=== PATIENT | female | born 1975 | race Caucasian/White ===

== ENCOUNTER 2020-06-20 10:16 | Outpatient (CLI) | payer BC, SELFPAY ==
--- NOTE | ~2020-06-20 | XR_ITS ---
EXAMINATION: XR chest 2V EXAM DATE: 06/20/2020 10:43 INDICATION: Cough for 2 weeks, shortness breath. History of bronchitis. TECHNIQUE: Frontal and lateral projections of the chest obtained and reviewed. There is no prior ines dy for comparison. FINDINGS: The lungs are clear. There are no pleural effusions. The cardiomediastinal silhouette is within normal limits. There is no pneumothorax suspected. The bones and soft tissues are unremarkab le. IMPRESSION: No acute cardiopulmonary findings. Reviewed, dictated and finalized at location B. ON MANAGER
== END 2020-06-20 10:17 | disposition home or self-care (01) ==
LOC: CHSIMG 10:19
PROVIDERS: PCP Nurse Practitioner Family; Visit Provider Nurse Practitioner Family
DX: R05 Cough (principal)
CPT/HCPCS: 71046

== ENCOUNTER 2020-06-27 08:02 | Outpatient (CLI) | payer BC, SELFPAY ==
--- NOTE | 2020-06-27 12:27 | P.PCNPFT_ITS ---
PFT Interpretation PFT Interpretation: DOS: 06/27/2019 REQUESTING: Lourdes Cordova NP REASON FOR TESTING: Cough PULMONARY FUNCTION TESTS Results are reproducible and reliable. Spirometry: FEV1 is 75% predicted, 2.11 L. FVC is normal 97% predicted. The FEV1/FVC ratio is 63% which is decreased. FEF 25-75 is 41% significantly dec reased. There is no significant change after bronchodilator Administration. Lung volumes: Total lung capacity 85%, normal. Residual volume 68% predicted, normal. RV/TLC is 28%, normal. Airway resistance is normal. Diffusion: DLCO is 79% normal. Flow volume loop: Normal IMPRESSION: Mild obstructive ventilatory impairment which is severe in the small airways. There is no response to bronchodilator. Normal lung volumes. Normal diffusion. Lack of response to bronchodilator should not preclude use if clinically indicated. Niox is 14 ppb, in the normal range. This indicates no increase in airway inflammation. Theresa Oleary MD
--- NOTE | 2020-06-27 12:35 | WPDPFTINT ---
PFT Interpretation PFT Interpretation: DOS: 06/27/2019 REQUESTING: Lourdes Cordova NP REASON FOR TESTING: Cough METHACHOLINE CHALLENGE This test was conducted per ATS guidelines. A PFT today 06/27/2019 showed FEV1 75% predicted, acceptable for proceeding with methacholine challenge. The patient was exposed to sequentially increasing doses of methacholine in the usual manner. Level 1 - saline Level 2 - 0.025 mg Level 3 - 0.25 mg Level 4 - 2.5 mg Level 5 - 10 mg The test was stopped after the 5th dose of methacholine, 10 mg methacholine, with a 24% decreased in FEV1. A decrease of 20% in the FEV1 is a positive result, and the testing is terminated. Flows returned to normal after bronchodilator was administered twice albuterol 2.5 mg via nebulizer. IMPRESSION: This is a positive methacholine challenge with the PD20 10 mg on the 5th level. This was the next to the highest dose that can be given. The best use for a methacholine challenge is to rule out asthma. Clinical correlation is advised. Theresa Oleary MD
== END 2020-06-27 08:03 | disposition home or self-care (01) ==
LOC: CHSCARD 08:05
PROVIDERS: PCP Nurse Practitioner Family; Visit Provider Nurse Practitioner Family
DX: R05 Cough (principal)
CPT/HCPCS: 94070; 94726; 94729; 95012; A9270; J7674

== ENCOUNTER 2020-07-18 10:58 | Outpatient (NON) | payer BC, SELFPAY ==
[2020-07-21 05:10] LABS: H pylori Ag Stool Not Detected (Not Detected)
== END 2020-07-18 10:59 ==
LOC: CHSLAB 11:04
DX: E66.01 Morbid (severe) obesity due to excess calories (principal); Z68.44 Body mass index [BMI] 60.0-69.9, adult; Z01.818 Encounter for other preprocedural examination
CPT/HCPCS: 87338

== ENCOUNTER 2021-10-12 10:01 | Outpatient (CLI) | payer BC, SELFPAY ==
[2021-10-12 10:24] LABS: Basophils Absolute Auto 0.04 K/mm3 (0.00-0.10); Basophils Percent Auto 0.5 % (0.0-1.0); Eosinophils Percent Auto 1.3 % (1.0-6.0); Hematocrit 45.2 % (35.0-49.0); Hemoglobin 14.6 g/dL (12.0-15.0); Immature Granulocyte Absolute 0.01 K/mm3 (0.00-0.00); Immature Granulocyte Percent A 0.1 % (0.0-0.0); Lymphocytes Absolute Auto 1.99 K/mm3 (1.10-4.50); Mean Corpuscular HGB Conc 32.3 g/dL (32.0-36.0); Mean Corpuscular Hemoglobin 29.9 pg (27.0-31.0); Mean Corpuscular Volume 92.4 fL (78.0-102.0); Mean Platelet Volume 9.1 fl (9.2-11.8); Monocytes Absolute Auto 0.54 K/mm3 (0.10-0.90); Monocytes Percent Auto 7.1 % (2.0-11.0); Platelet Count Result 321 K/mm3 (150-420); Red Blood Count 4.89 M/mm3 (4.20-5.40); Red Cell Distribution Width 13.2 % (11.6-14.4); White Blood Count 7.7 K/mm3 (4.8-10.8)
[2021-10-12 10:41] LABS: Hemoglobin A1C 5.2 % (<5.7)
[2021-10-12 11:54] LABS: Alanine Aminotransferase 29 U/L (14-59); Albumin Level 3.4 g/dL (3.4-5.0); Alkaline Phosphatase 97 U/L (46-116); Anion Gap 6 mmol/L (8-16); Aspartate Amino Transferase 11 U/L (15-37); Bilirubin,Total 0.4 mg/dL (0.00-1.00); Blood Urea Nitrogen 11 mg/dL (7-18); Calcium 8.8 mg/dL (8.5-10.1); Carbon Dioxide 29 mmol/L (21-32); Chloride 103 mmol/L (98-108); Cholesterol 221 mg/dL (0-200); Estimated Glomerular Filt Rate > 60; Glucose 88 mg/dL (70-99); HDL Direct 49 mg/dL (40-60); Iron 38 ug/dL (50-170); LDL Cholesterol Calculated 154 mg/dL (<130); Osmolality Calculated 284 mOsm/kg (285-295); Percent Iron Saturation 10 % (12-57); Potassium 4.1 mmol/L (3.5-5.1); Sodium 138 mmol/L (136-145); Thyroid Stimulating Hormone 2.55 uIU/mL (0.36-3.74); Total Protein 6.7 g/dL (6.4-8.2); Triglycerides 92 mg/dL (0-150)
== END 2021-10-12 10:02 | disposition home or self-care (01) ==
LOC: CHSLAB 10:03
PROVIDERS: PCP Nurse Practitioner Family; Visit Provider Nurse Practitioner Family
DX: E61.1 Iron deficiency (principal); I10 Essential (primary) hypertension; E88.81 Metabolic syndrome and other insulin resistance; E66.01 Morbid (severe) obesity due to excess calories
CPT/HCPCS: 36415; 80053; 80061; 83036; 83540; 83550; 84443; 85025

== ENCOUNTER 2023-02-21 11:24 | Outpatient (CLI) | payer BC, SELFPAY ==
[2023-02-21 11:57] LABS: Basophils Absolute Auto 0.03 K/mm3 (0.00-0.10); Basophils Percent Auto 0.4 % (0.0-1.0); Eosinophils Absolute Auto 0.03 K/mm3 (0.02-0.50); Eosinophils Percent Auto 0.4 % (1.0-6.0); Hematocrit 47.5 % (35.0-49.0); Hemoglobin 15.6 g/dL (12.0-15.0); Immature Granulocyte Absolute 0.02 K/mm3 (0.00-0.00); Immature Granulocyte Percent A 0.3 % (0.0-0.0); Lymphocytes Absolute Auto 1.83 K/mm3 (1.10-4.50); Lymphocytes Percent Auto 25.1 % (18.0-42.0); Mean Corpuscular HGB Conc 32.8 g/dL (32.0-36.0); Mean Corpuscular Volume 97.3 fL (78.0-102.0); Mean Platelet Volume 10.4 fl (9.2-11.8); Monocytes Percent Auto 6.9 % (2.0-11.0); Neutrophils Absolute Auto 4.9 K/mm3 (1.7-7.2); Neutrophils Percent Auto 66.9 % (50.0-70.0); Platelet Count Result 257 K/mm3 (150-420); Red Blood Count 4.88 M/mm3 (4.20-5.40); Red Cell Distribution Width 12.5 % (11.6-14.4); White Blood Count 7.3 K/mm3 (4.8-10.8)
[2023-02-21 12:19] LABS: Hemoglobin A1C 5.1 % (<5.7)
[2023-02-21 12:41] LABS: Alanine Aminotransferase 18 U/L (14-59); Albumin Level 3.5 g/dL (3.4-5.0); Alkaline Phosphatase 88 U/L (46-116); Anion Gap 8 mmol/L (8-16); Aspartate Amino Transferase 16 U/L (15-37); Bilirubin,Total 0.8 mg/dL (0.00-1.00); Blood Urea Nitrogen 8 mg/dL (7-18); Carbon Dioxide 27 mmol/L (21-32); Chloride 106 mmol/L (98-108); Cholesterol 214 mg/dL (0-200); Estimated Glomerular Filt Rate > 60; Glucose 77 mg/dL (70-99); HDL Direct 72 mg/dL (40-60); LDL Cholesterol Calculated 123 mg/dL (<130); Magnesium 1.9 mg/dL (1.8-2.4); Osmolality Calculated 289 mOsm/kg (285-295); Potassium 4.2 mmol/L (3.5-5.1); Sodium 141 mmol/L (136-145); Total Protein 6.6 g/dL (6.4-8.2); Triglycerides 95 mg/dL (0-150); Vitamin B12 531 pg/mL (193-986)
[2023-02-21 12:42] LABS: Folic Acid > 20.0 ng/mL (8.6->20)
== END 2023-02-21 11:25 | disposition home or self-care (01) ==
LOC: CHSLAB 11:29
PROVIDERS: PCP Nurse Practitioner Family
DX: K91.2 Postsurgical malabsorption, not elsewhere classified (principal); Z13.21 Encounter for screening for nutritional disorder; Z98.84 Bariatric surgery status
CPT/HCPCS: 36415; 80053; 80061; 82607; 82746; 83036; 83735; 85025

== ENCOUNTER 2023-05-29 15:00 | Outpatient (CLI) | payer BC, SELFPAY ==
[2023-05-29 15:57] LABS: SARS-CoV-2 RNA PCR Negative (Negative)
[2023-05-29 16:03] LABS: Influenza A QL RT-PCR Negative (Negative); Influenza B QL RT-PCR Negative (Negative); RSV RNA, RT-PCR Negative (Negative)
== END 2023-05-29 15:01 | disposition home or self-care (01) ==
LOC: CHSLAB 15:02
PROVIDERS: PCP Nurse Practitioner Family; Visit Provider Nurse Practitioner Family
DX: J39.9 Disease of upper respiratory tract, unspecified (principal)
CPT/HCPCS: 87637

== ENCOUNTER 2024-08-01 20:07 | Emergency (ER) | payer BC, SELFPAY ==
--- NOTE | ~2024-08-01 | XR_ITS ---
HISTORY: LEFT KNEE PAIN AFTER FALL THIS EVENING. COMPARISON: None TECHNIQUE: 4 views of the left knee were performed FINDINGS: No acute or subacute fracture. Medial and lateral tibiofemoral joint space narrowing is identified. Moderate suprapatellar joint effusion is identified. The infrapatellar joint space is clear. IMPRESSION: Significant degenerative disease without acute fracture. Moderate suprapatellar joint effusion. Reviewed, dictated and finalized at location A. CE CORRESPONDENT
[2024-08-01 20:07] VITALS: BP 152/91; PULSE 76; RESP 18; TEMP 36.5; O2SAT 100
--- OUTSIDE RECORDS SUMMARY | 2024-08-01 20:09 | XMS_ITS | Encounter Summary ---
Author Organization [facility] Address [address] [place] [address] Care Team Providers Care Product Design Engineer Name Role Phone Unavailable Primary Care Provider Unavailabl e Reason for Visit * Reason Onset Date Comments Medical Management 03/25/2022 Spoke w/ LIBRARIAN HELPER Kylah rodarte Encounter Details Date Type Department Care Team (Late st Contact Info) Description 03/25/2022 Telephone [facility] Admitting [address] [place] [address] [place] [address] [place] [address] [place] [address] Medical Management (Spoke w/ LIBRARIAN HELPER Hossein) Social History Tobacco Use Types Packs/Day Years Used Date Smoking Tobacco: Former Cigarettes Q uit: 1996 Smokeless Tobacco: Never Alcohol Use Standard Drinks/Week Comments Yes 0 (1 standard drink = 0.6 oz pur e alcohol) socially Comments No Sex and Gender Information Value Date Recorded Sex Assigned at Not on file Legal Sex Female 8:59 AM CDT Gender Identity Not on file Sexual Orientation Not on file COVID-19 Exposure Response Date Recorded In the last 10 days, have yo u been in contact with someone who was confirmed or suspected to have Coronavirus/COVID-19? No / Unsure 03/25/2022 7:04 AM CDT documented as of this encounter Plan of Treatment Not on file documented as of this encounter Visit Diagnoses Not on filedocumented in this encounter
--- OUTSIDE RECORDS SUMMARY | 2024-08-01 20:09 | XMS_ITS | Clinical Summary ---
Author Organization [facility] Address [address] [place] [address] Phone Care Team Providers Care Commissioned Sales Associate Name Role Phone Unavailable Primary Care Provider Unavailabl e Allergies Active Allergy Reactions Criticality Noted Date Comments Lisinopril Cough Low 12/20/2021 Medications buPROPion HCL (WELLBUTRIN SR) 150 mg Sustained Release 12 hour tablet Take 150 mg by mouth daily. Active pantoprazole (Protonix) 40 mg Tablet, Delayed Release (E.C.) Take 1 Tablet (40 mg) by mouth daily. 60 Tablet 2 Active lovastatin (MEVACOR) 20 mg tablet Take 20 mg by mouth daily. 2 Active FLUoxetine (PROzac) 20 mg capsule Take 20 mg by mouth daily. 2 Active fluticasone propion-salmete roL (ADVAIR DISKUS,WIXELA INHUB) 100-50 mcg/dose disk inhaler Take 1 Puff by inhalation daily. Active albuterol sulfate 90 mcg/Actuation inhaler Take 1 Puff by inhalation every 6 hours as needed. 1 Active HYDROcodone-nohemy taminophen (HYCET) 7.5-325 mg/15 mL SolutionIndicat ions:Morbid obesity with BMI of 60.0-69.9, adult (CMS/HCC) Take 15 mL by mouth every 6 hours as needed for Pain. Max Daily Amount: 60 mL 280 mL 03/26/2022 2:29 PM CDT 2 Active famotidine (PEPCID) 20 mg tablet Take 1 Tablet (20 mg) by mouth 2 times daily. 60 Tablet 2 03/26/2022 2:29 PM CDT 2 Active ondansetron (Zofran) 4 mg Tablet Take 1 Tablet (4 mg) by mouth every 8 hours as needed for Nausea or Vomiting. 50 Tablet 03/26/2022 2:29 PM CDT 2 Active Active Problems Problem Noted Date Diagnosed Date Hypophosphatemia 03/27/2022 Morbid obesity with BMI of 50.0-59.9, adult 03/09 S/P laparoscopic sleeve gastrectomy 03/26/2022 Hypokalemia 03/26/2022 Hypomagnesemia 03/26/2022 Immunizations Immunization Administration Dates Next Due Influenza Seasonal Unspecified Formulation IM Family History Medical History Relation Name Comments Diabetes Father Hypertension Father Diabetes Mother Relation Name Status Comments Father Mother Social History Tobacco Use Types Packs/Day Years Used Date Smoking Tobacco: Former Cigarettes Q uit: 1996 Smokeless Tobacco: Never Tobacco Cessation:Counseling Given: Not Answered Alcohol Use Standard Drinks/Week Comments Yes 0 (1 standard drink = 0.6 oz pur e alcohol) socially Comments No Sex and Gender Information Value Date Recorded Sex Assigned at Not on file Legal Sex Female 8:59 AM CDT Gender Identity Not on file Sexual Orientation Not on file Last Filed Vital Signs Vital Sign Reading Time Taken Comments Blood Pressure 140/76 03/27/2022 7:56 AM CDT Pulse 76 03/27/2022 7:56 AM CDT Temperature 36.7 C (98 F) 03/27/2022 7:56 AM CDT Respiratory Rate 16 03/27/2022 7:56 AM CDT Oxygen Saturation 97% 03/27/2022 7:56 AM CDT Inhaled Oxygen Concentration - - Weight 154.2 kg (340 lb) 03/25/2022 7:06 AM CDT Height 165.1 cm (5' 5 ) 03/25/2022 7:06 AM CDT Body Mass Index 56.58 03/25/2022 7:06 AM CDT Plan of Treatment Health Maintenance Due Date Last Done Comments Pre-Diabetes and Diabetes Screening 1975 PNEUMOCOCCAL VACCINE 0-64 YEARS (1 of 2 - PCV) 982 DTAP/TDAP/TD VACCINES (1 - Tdap) 08/07/1994 HEPATITIS B VACCINES (1 of 3 - 19+ 3-dose series) 06/1994 CERVICAL CANCER SCREENING 08/07/2005 BREAST CANCER SCREENING 2015 COLORECTAL SCREENING 08/07/2020 Colorectal Cancer Screening 08/07/2020 FIT-DNA Q 3 years 08/07/2020 FIT/FOBT Q 1 year 08/07/2020 Flex Sig/CT Colonography Q 5 years 08/07/2020 INFLUENZA VACCINE (#1) 2024 03/09/2022 Medical Devices Implanted Type Area Engineer [employer] Device Identifier Shelf Expiration Date Model / Serial / Lot Seamguard Endogia 60 Prpl [id number] - [id number] Implanted:Qty : 2 on 03/25/2022 by Monroe Jaramillo MD at [facility] N/A: Abdomen [employer] 11/26/2024 [id number] / / [id number] Seamguard Endogia 60 Blk [id number] - [id number] Implanted:Qty : 2 on 03/25/2022 by Monroe Jaramillo MD at [facility] N/A: Abdomen [employer] 10/06/2024 [id number] / / [id number] [employer] Worker Endoclip Iii 5mm W/Cliplogic [id number] - [id number] Implanted:Qty : 1 on 03/25/2022 by Monroe Jaramillo MD at [facility] N/A: Abdomen [employer]EN 09/07/2023 [id number] / / [id number] Lens Implant Insurance BCBS BLUE ACCESS/TRUE BLUE PPO RX PRIME THERAPEUTICS Commercial RX MC PLANS (INTERNAL) [facility] Internal Plans Advance Directives For more information, please contact: [phone] * Full Code (Latest Code Status on File) Date Activated Date Inactivated Comments 03/25/2022 3:13 PM 03/27/2022 2:32 PM * Full Code Date Activated Date Inactivated Comments 03/25/2022 6:34 AM 03/25/2022 3:13 PM * Full Code Date Activated Date Inactivated Comments 03/22/2022 8:09 AM 03/22/2022 12:49 PM
--- OUTSIDE RECORDS SUMMARY | 2024-08-01 20:09 | XMS_ITS | Clinical Summary ---
Author Organization [facility] Address [address] [facility] [place] [address] Care Team Providers Care Franchise Sales Representative Name Role Phone YulissaRosiomiriam Levy DO Primary Care Provider Allergies Active Allergy Reactions Criticality Noted Date Comments Lisinopril Cough Low 07/07/2020 Medications ProAir HFA 90 mcg/actuation inhalerIndicati ons:Acute Asthma Attack Inhale 1 puff every 6 (six) hours as needed 1 Active FLUoxetine (PROzac) 20 mg capsuleIndicati ons:depression Take 1 capsule (20 mg total) by mouth every morning 0 Active Advair Diskus 250-50 mcg/dose diskus inhalerIndicati ons:Maintenance Therapy for Asthma Inhale 1 puff 2 (two) times a day 1 Active guaifenesin (MUCINEX ORAL) Take 1 tablet by mouth as needed Active acetaminophen/c affeine (EXCEDRIN TENSION HEADACHE ORAL) Take 1 tablet by mouth as needed (RAMOS) Active ferrous fumarate 325 mg (106 mg iron) tablet Take 1 tablet (325 mg total) by mouth daily with breakfast Active phentermine 15 mg capsule Take 1 capsule (15 mg total) by mouth every morning 1 Active Active Problems Problem Noted Date Diagnosed Date Class 3 severe obesity due t o excess calories with serious comorbidity and body mass index (BMI) of 50.0 to 59.9 in adult 07/10/2020 Overview (07/10/2020): Added automatically from request for surgery [id number] Asthma 07/10/2020 HTN (hypertension) 07/10/2020 Surgical History Surgery Date Site/Laterality Comments CATARACT EXTRACTION EXTRACAP SULAR W/ INTRAOCULAR LENS IMPLANTATION 06/09/2017 - 06/08/2018 Bilateral Medical History Medical History Date Comments Asthma HTN (hypertension) GERD (gastroesophageal reflux disease) Depression Family History Medical History Relation Name Comments Anesthesia problems Neg Hx Social History Tobacco Use Types Packs/Day Years Used Date Smoking Tobacco: Former Cigarettes Q uit: 1994 Smokeless Tobacco: Never Comments:occasional 3-4 ciga rettes Alcohol Use Standard Drinks/Week Comments Yes 0 (1 standard drink = 0.6 oz pur e alcohol) 2 drinks per month Personal Safety Answer Date Recorded Getting School Help Needed Not on file 08/09 Comments Unknown Sex and Gender Information Value Date Recorded Sex Assigned at Not on file Legal Sex Female 11:57 AM WORKERS' COMPENSATION MEDIATOR Gender Identity Female 07/01/2020 10:47 AM WORKERS' COMPENSATION MEDIATOR Sexual Orientation Straight 07/01/2020 10 :47 AM WORKERS' COMPENSATION MEDIATOR Obstetrics History Last Filed Vital Signs Vital Sign Reading Time Taken Comments Blood Pressure 116/78 11/07/2023 9:08 AM CDT Pulse 56 11/07/2023 9:08 AM CDT Temperature 36.2 C (97.1 F) 08/01/2020 10:35 AM WORKERS' COMPENSATION MEDIATOR Respiratory Rate 29 08/01/2020 2:20 PM WORKERS' COMPENSATION MEDIATOR Oxygen Saturation 97% 08/01/2020 2:20 PM WORKERS' COMPENSATION MEDIATOR Inhaled Oxygen Concentration - - Weight 104.8 kg (231 lb) 11/07/2023 9:08 AM CDT Height 165.1 cm (5' 5 ) 04/02/2021 10:22 AM CDT Body Mass Index 38.44 04/02/2021 10:22 AM CDT Plan of Treatment Health Maintenance Due Date Last Done Comments Breast Cancer Screening-Mammogram 1975 Cervical Cancer Screening 1975 Colon Cancer Screening-Colonoscopy 1975 Depression Screening 1975 Hepatitis C Screening 1975 DTaP/Tdap/Td Vaccine (1 - Tdap) 08/07/1986 Hepatitis B Screening 08/07/1993 Regular Well Visit/Exam 18-64 08/07/1993 Pneumococcal vaccine <65 (1 of 2 - PCV) 08/07/1994 Covid-19 Vaccine Completed 03/07/2024, , 03/09/2022, Additional history exists Influenza Vaccine Completed 03/07/2024, , 03/09/2022, Additional history exists Insurance [employer] [place] [employer] [place] CHO[place]F [place] Advance Directives For more information, please contact: [phone] * Full Code (Latest Code Status on File) Date Activated Date Inactivated Comments 08/01/2020 10:02 AM 08/01/2020 6:40 PM Care Teams Franchise Sales Representative Relationship Specialty Start Date End Date Garth Duenas DO [address] [place] [address] PCP - General Family Medicine 06/21/20
--- OUTSIDE RECORDS SUMMARY | 2024-08-01 20:09 | XMS_ITS | Referral Summary ---
Author Organization [facility] Address [address] [facility] [address] [place] [address] Care Team Providers Care Borematic Operator Name Role Phone YulissaRosiomiriam Levy DO Primary [...] (07/10/2020): Added automatically from request for surgery [id number] Asthma 07/10/2020 HTN (hypertension) 07/10/2020 Social History Tobacco Use Types Packs/Day Years [...] on file Legal Sex Female 11:57 AM 911 OPERATOR Gender Identity Female 07/01/2020 10:47 AM 911 OPERATOR Sexual Orientation Straight 07/01/2020 10 :47 AM 911 OPERATOR Last Filed Vital Signs Vital Sign Reading Time Taken Comments Blood Pressure 116/78 11/07/2023 9:08 AM CDT Pulse 56 11/07/2023 9:08 AM CDT Temperature 36.2 C (97.1 F) 08/01/2020 10:35 AM 911 OPERATOR Respiratory Rate 29 08/01/2020 2:20 PM 911 OPERATOR Oxygen Saturation 97% 08/01/2020 2:20 PM 911 OPERATOR Inhaled Oxygen Concentration - - Weight 104.8 kg (231 lb) 11/07/2023 9:08 AM CDT Height 165.1 cm (5' 5 ) 04/02/2021 10:22 AM CDT Body Mass Index 38.44 04/02/2021 10:22 AM CDT Plan of Treatment Not on file Insurance [employer] OOS Member Subscriber Plan / Payer (Ef fective 2018-Present) Name:Magda Astorga Relation to Subscriber:Self Name:Magda Astorga Payer ID:[id number] (NAIC) Type:BC ALLIANCE Address: [address] CHOICE PRF PPO [place] Member Subscriber Plan / Payer (Ef fective 2018-Present) Name:Magda Astorga Relation to Subscriber:Self Name:Magda Astorga Payer ID:[id number] (NAIC) Type:HEALTHCARE/EXCHANGE Address: [address] [place] [phone] Advance Directives For more information, please contact: [phone] * Full Code (Latest Code Status on File) Date Activated Date Inactivated Comments 08/01/2020 10:02 AM 08/01/2020 6:40 PM Care Teams Borematic Operator Relationship Specialty Start Date End Date Garth Duenas DO [address] [place] [address] PCP - General Family Medicine 06/21/20
--- OUTSIDE RECORDS SUMMARY | 2024-08-01 20:09 | XMS_ITS | Clinical Summary ---
Author Organization [facility] Address [facility] [place] [address] Care Team Providers Care Beater Engineer Helper Name Role Phone AntwonGarth lozano Primary Care Provider [phone] Allergies Active Allergy Reactions Criticality Noted Date Comments Lisinopril Cough 05/12/2024 Medications albuterol sulfate HFA 108 (90 Base) MCG/ACT inhaler 05/20/2023 Act sugey montelukast (SINGULAIR) 10 MG tablet Take 1 tablet (10 mg total) by mouth. 07/08/2023 Active FLUoxetine (PROZAC) 20 MG capsule Take 1 capsule (20 mg total) by mouth daily. 04/14/2024 Active Active Problems No known active problems Encounters Date Type Department Care Team Description 05/12/2024 8:08 PM TECHNICAL ARTIST - 05/12/2024 11:59 PM [facility] Hospital Encounter [facility] [address] [place] [address] Sisi Loera FNP Discharge Disposition: Home or Self Care (Routine Discharge) 05/12/2024 1:40 PM TECHNICAL ARTIST Office Visit [facility] [address] [place] [address] Sisi Loera FNP Sore Throat 05/12/2024 Travel from Last 3 Months Immunizations Name Administration Dates Next Due Afluria 6-35 months (pre-herber led syringe IIV4) 03/09/2022 Influenza (Generic) 03/17/2021 Influenza Adult (Generic) 03/06/2023,03/04/2020, 03/12/2016 Social History Tobacco Use Types Packs/Day Years Used Date Smoking Tobacco: Former Cigarettes Q uit: 06/09/1993 Smokeless Tobacco: Never PHQ-2 Answer Date Recorded Patient Health Questionnaire-2 Score 0 08/13/2023 Comments Unknown Sex and Gender Information Value Date Recorded Sex Assigned at Not on file Legal Sex Female 3:03 PM TECHNICAL ARTIST Gender Identity Not on file Sexual Orientation Not on file Last Filed Vital Signs Vital Sign Reading Time Taken Comments Blood Pressure 122/88 05/12/2024 1:48 PM TECHNICAL ARTIST Pulse 66 05/12/2024 1:48 PM TECHNICAL ARTIST Temperature 37 C (98.6 F) 05/12/2024 1:48 PM TECHNICAL ARTIST Respiratory Rate - - Oxygen Saturation 98% 05/12/2024 1:48 PM TECHNICAL ARTIST Inhaled Oxygen Concentration - - Weight 113.4 kg (250 lb) 05/12/2024 1:48 PM TECHNICAL ARTIST Height 165.1 cm (5' 5 ) 05/12/2024 1:48 PM TECHNICAL ARTIST Body Mass Index 41.6 05/12/2024 1:48 PM TECHNICAL ARTIST Plan of Treatment Health Maintenance Due Date Last Done Comments Cervical Cancer Screening Pap Smear (Age 30 to 64) Every 3 Years 1975 Colorectal Cancer Screening Colonoscopy (10 Years) 1975 Annual Physical 08/07/1978 Hepatitis C 08/07/1993 DTaP, Tdap and Td Vaccines (1 - Tdap) 08/07/1994 Hepatitis B Vaccines (1 of 3 - 19+ 3-dose series) 08/07/1994 Cervical Cancer Screening Pap with HPV Testing (Age 30 to 64) Every 5 Years 08/07/2005 Cervical Cancer Screening with HPV 08/07/2005 Mammogram Screening 2015 COVID-19 Vaccine ( season) 2024 03/27/2023, 03/09/2022, 03/17/2021, Additional history exists Influenza Adult (#1) 2024 03/06/2023, 03/17/2021, 03/04/2020, Additional history exists PHQ-2 (Physician [place]) 06/09/2024 08/13/2023 Meningococcal B Vaccine Aged Out No l onger eligible based on patient's age to complete this topic Meningococcal Vaccine Aged Out No leonel annette eligible based on patient's age to complete this topic Pneumococcal Vaccine: Pediatrics (0 to 5 Years) and At-Risk Patients (6 to 64 Years) Aged Out No longer eligible based on patient's age to complete this topic RSV Immunizations Under 20 Months Aged Out No longer eligible based on patient's age to complete this topic Procedures Procedure Name Priority Date/Time Associated Diagnosis Comments CULTURE STREP A Routine 05/12/2024 1:40 PM TECHNICAL ARTIST Acute pharyngitis, unspecified etiology STREP A RAPID Routine 05/12/2024 Sore throat from Last 3 Months Results * CULTURE STREP A (05/12/2024 1:40 PM TECHNICAL ARTIST) SPEC DESCRIPTION THROAT 05/12/2024 8:09 PM TECHNICAL ARTIST [facility] SPECIAL REQUESTS NO SPECIAL REQUEST 05/12/2024 8:09 PM TECHNICAL ARTIST [facility] CULTURE RESULT NO STREPTOCOCCUS PYOGENES (GROUP A) ISOLATED 05/15/2024 1:30 PM TECHNICAL ARTIST [facility] THROAT SWAB / Unknown 05/12/2024 1:40 PM TECHNICAL ARTIST 05/12/2024 8:23 PM TECHNICAL ARTIST Sisi ZACARIASP MICROBIOLOGY - GENERAL ORDERABLES Final Result Performing Organization Address City/[facility]/ZIP Co de Phone Number [facility] [address] [place] [address], [phone] * STREP A RAPID (05/12/2024) RAPID STREP TEST NEGATIVE NEGATIVE -[address] Internal Control: VALID VALID -[address] STRUCTURE OF ANTERIOR PORTION OF NECK / Unknown 05/12/2024 Sisi ZACARIASP MICROBIOLOGY - GENERAL ORDERABLES Final Result [id number] [place] [address] [place] [address], from Last 3 Months Insurance [facility] Care Teams Beater Engineer Helper Relationship Specialty Start Date End Date Garth Duenas DO [address] [place] [address] PCP - General FAMILY PRACTICE 08/13/23
--- NOTE | 2024-08-01 20:16 | ED.LOWEXIN ---
HPI - Extremity Injury (Lower) General Chief Complaint: Extremity Injury, Lower Stated Complaint: FALL Time Seen by Provider: 08/01/24 20:16 Source: patient Mode of arrival: ambulatory Limitations: no limitations History of Present Illness HPI Narrative: Patient is a 48-year-old female who was working this evening and pushing a shopping cart which fell off the curb and from ground level she fell onto the concrete. Patient has left knee pain after the fall. No other injuries. Head and neck are negative for complaints. MD complaint: knee injury ( Left) Onset (ago): hour(s) ( 3) Injury: Left: knee Type of Injury: blunt Place: street/outdoors Severity: moderate Severity scale (1-10): 5 Relieving factors: immobilization Exacerbating factors: weight bearing, movement and palpation Context: fall, direct blow and walking Associated symptoms: swelling and other ( ecchymosis) Other symptoms: none Treatments prior to arrival: other ( none) Related Data Home Medications ?Medication ?Instructions ?Recorded ?Confirmed ?Last Taken ?Type benzonatate 200 mg capsule See Rx Instructions .Route 05/14/24 05/21/24 Unknown History .COMPLEX PRN Allergies Allergy/AdvReac Type Severity Reaction Status Date / Time lisinopril Allergy Mild cough Verified 08/01/24 20:53 Review of Systems Review of Systems: All systems reviewed & are unremarkable except as noted in HPI and below Constitutional: Constitutional: Reports no additional constitutional complaints Eyes: Eyes: Reports no additional eye complaints ENT: Reports system reviewed and no additional complaints, except as documented Cardiovascular: Cardiovascular: Reports no additional cardiovascular complaints Respiratory: Respiratory: Reports no additional respiratory complaints Gastrointestinal: Gastrointestinal: Reports no additional gastrointestinal complaints Genitourinary: Genitourinary: Reports no additional female genitourinary complaints Musculoskeletal: Musculoskeletal: Reports no additional musculoskeletal complaints Integumentary/Breasts: Skin/Breast: Reports system reviewed and no additional complaints, except as docu Neurologic: Reports system reviewed and no additional complaints, except as documented Psychiatric: Psychiatric: Reports no additional psychiatric complaints Endocrine: Endocrine: Reports no additional endocrine complaints Hematologic/Lymphatic: Hematologic/Lymphatic: Reports no additional hematologic/lymphatic complaints Allergic/Immunologic: Allergic/Immunologic: Reports no additional allergic/immunologic complaints PMFSH Past Medical History Medical History Hypertension Obesity, morbid, BMI 50 or higher Persistent cough for 3 weeks or longer Encounter for screening mammogram for malignant neoplasm of breast Bronchial spasms Bronchitis Surgical History Surgical History S/P laparoscopic sleeve gastrectomy (~08/2020) History of gastric surgery (~07/2020) History of eye surgery Family History Family History Father Heart disease Other emphysema Social History Social History Years smoked: 3 Smoking status: Former smoker Alcohol intake: current Alcohol use details: social Substance use: never Substance use type: does not use Living arrangements: with family Additional living arrangements comments: Gender identity (if verbalized by the patient): Female Exam Const: General: healthy appearing Nutritional Appearance: well nourished Orientation/consciousness: patient oriented x3 Limitations: no limitations HENMT: Head: normal to inspection Ears: external ears normal Face/Nose/Sinus: Normal external nose present Eyes: Conjunctivae: conjunctivae normal Pupils: Equal, round and reactive pupils present EOM: EOMs intact bilaterally Neck: Neck: normal visual inspection Chest: Chest palpation & inspection: normal inspection of the chest Resp: Effort & Inspection: normal respiratory effort and not labored Auscultation: clear to auscultation bilaterally and no crackles Cardio: Rate: regular rate Rhythm: regular rhythm Heart sounds: no murmurs GI: Inspection: non-distended GI Palp: Yes Soft to palpation and No Tenderness to palpation present (GI) Auscultation: normal bowel sounds : General: Yes bladder normal to palpation Back/Spine/Pelvis: Back: no CVA tenderness Skin: General skin exam: normal color Rashes: no rashes Wounds: no wounds Other: ecchymosis of the right knee laterally Neuro: General: patient oriented x3 Cranial nerves: Yes Nystagmus not present Speech: normal speech Gait exam (Neuro): Normal gait present Extrem: General: abnormal to inspection Other: right knee is tender and swollen with ecchymosis; range of motion causes pain Psych: Mental Status: mental status grossly normal Affect: normal affect Attitude: cooperative Course Vital Signs Vital signs: Vital Signs Temperature 36.5 C 08/01/24 20:07 Pulse Rate 76 08/01/24 20:07 Respiratory Rate 18 08/01/24 20:07 Blood Pressure 152/91 H 08/01/24 20:07 Pulse Oximetry 100 08/01/24 20:07 Oxygen Delivery Room Air 08/01/24 20:07 Temperature 36.5 C 08/01/24 20:07 Pulse Rate 76 08/01/24 20:07 Respiratory Rate 18 08/01/24 20:07 Blood Pressure 152/91 H 08/01/24 20:07 Pulse Oximetry 100 08/01/24 20:07 Oxygen Delivery Room Air 08/01/24 20:07 MDM - Extremity Injury (Lower) MDM Narrative Medical decision making narrative: patient is a 48-year-old female with left knee pain and swelling after an injury. We will do an x-ray and pain control. Imaging Data Attestation: I personally reviewed and interpreted this imaging study as follows: Radiologist's impression: left knee x-ray shows IMPRESSION: Significant degenerative disease without acute fracture. Moderate suprapatellar joint effusion. Discharge Plan Discharge Clinical Impression: Derangement of knee, left, Effusion of knee joint, left Patient Disposition: Home, Self-Care Condition: Stable Instructions: Knee Pain (ED) Additional Instructions: please follow-up with the primary doctor in the next week. I suggest an MRI to be done through the primary doctor in the next week. Further you may want to see an development disability specialist. Wear the Arron bandage all the time. You may want to get crutches at the pharmacy. Patient Language: Congolese Prescriptions: New hydrocodone-acetaminophen 5-325 mg tablet 1 tablet PO Q8H PRN (Reason: pain) Qty: 20 0RF Rx Instructions: 1-2 tabs per dose methylprednisolone [Medrol (Jeison)] 4 mg tablets,dose pack See Rx Instructions .ROUTE .COMPLEX Qty: 21 0RF Rx Instructions: orally per package directions No Action albuterol sulfate [Ventolin HFA] 90 mcg/actuation HFA aerosol inhaler 1 inh inhalation Q4H PRN (Reason: shortness of breath or wheezing) Qty: 8.5 1RF benzonatate 200 mg capsule See Rx Instructions .ROUTE .COMPLEX PRN Dose Instruction: TAKE ONE CAPSULE BY MOUTH THREE TIMES A DAY NEEDED FOR COUGH Rx Instructions: TAKE ONE CAPSULE BY MOUTH THREE TIMES A DAY NEEDED FOR COUGH PRN; fluticasone propionate [Allergy Relief (fluticasone)] 50 mcg/actuation spray,suspension 1 spray intranasal DAILY PRN (Reason: nasal congestion) Qty: 15.8 1RF Rx Instructions: administer into each nostril fluticasone propion-salmeterol [Advair Diskus] 100-50 mcg/dose blister with device 1 inh inhalation Q12H Qty: 60 5RF montelukast 10 mg tablet See Rx Instructions .ROUTE .COMPLEX Qty: 30 3RF Dose Instruction: TAKE ONE TABLET ORALLY DAILY Rx Instructions: TAKE ONE TABLET ORALLY DAILY fluoxetine 20 mg capsule See Rx Instructions .ROUTE .COMPLEX Qty: 30 3RF Dose Instruction: TAKE ONE CAPSULE BY MOUTH DAILY Rx Instructions: TAKE ONE CAPSULE BY MOUTH DAILY Follow-up/Referrals: Garth Duenas DO [Primary Care Provider] - Time of Disposition: 21:46
--- OUTSIDE RECORDS SUMMARY | 2024-08-01 20:34 | XMS_ITS | Clinical Summary ---
Author Organization [facility] Address [facility] [place] [address] Care Team Providers Care Mold Stamper And Repairer Name Role Phone AntwonGarth lozano Primary Care Provider [phone] Allergies Active Allergy Reactions Criticality Noted Date [...] Department Care Team Description 05/12/2024 8:08 PM HIGH MAN - 05/12/2024 11:59 PM [facility] Hospital Encounter [facility] [address] [place] [address] Sisi Loera FNP Discharge Disposition: Home or Self Care (Routine Discharge) 05/12/2024 1:40 PM HIGH MAN Office Visit [facility] [address] [place] [address] Sisi Loera FNP Sore Throat [...] on file Legal Sex Female 3:03 PM HIGH MAN Gender Identity Not on file Sexual Orientation Not on file Last Filed Vital Signs Vital Sign Reading Time Taken Comments Blood Pressure 122/88 05/12/2024 1:48 PM HIGH MAN Pulse 66 05/12/2024 1:48 PM HIGH MAN Temperature 37 C (98.6 F) 05/12/2024 1:48 PM HIGH MAN Respiratory Rate - - Oxygen Saturation 98% 05/12/2024 1:48 PM HIGH MAN Inhaled Oxygen Concentration - - Weight 113.4 kg (250 lb) 05/12/2024 1:48 PM HIGH MAN Height 165.1 cm (5' 5 ) 05/12/2024 1:48 PM HIGH MAN Body Mass Index 41.6 05/12/2024 1:48 PM HIGH MAN Plan of Treatment Health Maintenance Due Date [...] 03/17/2021, 03/04/2020, Additional history exists PHQ-2 (Physician [place]) 06/09/2024 08/13/2023 Meningococcal B Vaccine Aged Out [...] CULTURE STREP A Routine 05/12/2024 1:40 PM HIGH MAN Acute pharyngitis, unspecified etiology STREP A RAPID Routine 05/12/2024 Sore throat from Last 3 Months Results * CULTURE STREP A (05/12/2024 1:40 PM HIGH MAN) SPEC DESCRIPTION THROAT 05/12/2024 8:09 PM HIGH MAN [facility] SPECIAL REQUESTS NO SPECIAL REQUEST 05/12/2024 8:09 PM HIGH MAN [facility] CULTURE RESULT NO STREPTOCOCCUS PYOGENES (GROUP A) ISOLATED 05/15/2024 1:30 PM HIGH MAN [facility] THROAT SWAB / Unknown 05/12/2024 1:40 PM HIGH MAN 05/12/2024 8:23 PM HIGH MAN Sisi ZACARIASP MICROBIOLOGY - GENERAL ORDERABLES Final Result Performing Organization Address City/[facility]/ZIP Co de Phone Number [facility] [address] [place] [address], [phone] * STREP A RAPID (05/12/2024) RAPID STREP TEST NEGATIVE NEGATIVE -[address] Internal Control: VALID VALID -[address] STRUCTURE OF ANTERIOR PORTION OF NECK / Unknown 05/12/2024 Sisi ZACARIASP MICROBIOLOGY - GENERAL ORDERABLES Final Result [id number] [place] [address] [place] [address], from Last 3 Months Insurance [facility] Care Teams Mold Stamper And Repairer Relationship Specialty Start Date End Date Garth Duenas DO [address] [place] [address] PCP - General FAMILY PRACTICE 08/13/23
--- OUTSIDE RECORDS SUMMARY | 2024-08-01 20:34 | XMS_ITS | Clinical Summary ---
Author Organization [facility] Address [address] [facility] [place] [address] Care Team Providers Care Ward Helper Name Role Phone YulissaRosiomiriam Levy DO Primary [...] (07/10/2020): Added automatically from request for surgery [id number] Asthma 07/10/2020 HTN (hypertension) 07/10/2020 Surgical History [...] on file Legal Sex Female 11:57 AM MEDICAL DETAIL REPRESENTATIVE Gender Identity Female 07/01/2020 10:47 AM MEDICAL DETAIL REPRESENTATIVE Sexual Orientation Straight 07/01/2020 10 :47 AM MEDICAL DETAIL REPRESENTATIVE Obstetrics History Last Filed Vital Signs Vital Sign Reading Time Taken Comments Blood Pressure 116/78 11/07/2023 9:08 AM CDT Pulse 56 11/07/2023 9:08 AM CDT Temperature 36.2 C (97.1 F) 08/01/2020 10:35 AM MEDICAL DETAIL REPRESENTATIVE Respiratory Rate 29 08/01/2020 2:20 PM MEDICAL DETAIL REPRESENTATIVE Oxygen Saturation 97% 08/01/2020 2:20 PM MEDICAL DETAIL REPRESENTATIVE Inhaled Oxygen Concentration - - Weight 104.8 [...] 03/07/2024, , 03/09/2022, Additional history exists Insurance [employer] [place] [employer] [place] Advance Directives For more information, please contact: [phone] * Full Code (Latest Code Status on File) Date Activated Date Inactivated Comments 08/01/2020 10:02 AM 08/01/2020 6:40 PM Care Teams Ward Helper Relationship Specialty Start Date End Date Garth Duenas DO [address] [place] [address] PCP - General Family Medicine 06/21/20
--- OUTSIDE RECORDS SUMMARY | 2024-08-01 20:34 | XMS_ITS | Encounter Summary ---
Author Organization [facility] Address [address] [place] [address] Care Team Providers Care Boilers Inspector Name Role Phone Unavailable Primary Care Provider Unavailabl e Reason for Visit * Reason Onset Date Comments Medical Management 03/25/2022 Spoke w/ HYDRAULIC REPAIRER Kylah rodarte Encounter Details Date Type Department Care Team (Late st Contact Info) Description 03/25/2022 Telephone [facility] Admitting [address] [place] [address] [place] [address] [place] [address] [place] [address] Medical Management (Spoke w/ HYDRAULIC REPAIRER Hossein) Social History Tobacco Use Types Packs/Day [...]
--- OUTSIDE RECORDS SUMMARY | 2024-08-01 20:34 | XMS_ITS | Referral Summary ---
Author Organization [facility] Address [address] [facility] [place] [address] Care Team Providers Care Technician Trainee Name Role Phone YulissaRosiomiriam Levy DO Primary [...] (07/10/2020): Added automatically from request for surgery [id number] Asthma 07/10/2020 HTN (hypertension) 07/10/2020 Social History [...] on file Legal Sex Female 11:57 AM CARPENTER ASSISTANT Gender Identity Female 07/01/2020 10:47 AM CARPENTER ASSISTANT Sexual Orientation Straight 07/01/2020 10 :47 AM CARPENTER ASSISTANT Last Filed Vital Signs Vital Sign Reading Time Taken Comments Blood Pressure 116/78 11/07/2023 9:08 AM CDT Pulse 56 11/07/2023 9:08 AM CDT Temperature 36.2 C (97.1 F) 08/01/2020 10:35 AM CARPENTER ASSISTANT Respiratory Rate 29 08/01/2020 2:20 PM CARPENTER ASSISTANT Oxygen Saturation 97% 08/01/2020 2:20 PM CARPENTER ASSISTANT Inhaled Oxygen Concentration - - Weight 104.8 kg (231 lb) 11/07/2023 9:08 AM CDT Height 165.1 cm (5' 5 ) 04/02/2021 10:22 AM CDT Body Mass Index 38.44 04/02/2021 10:22 AM CDT Plan of Treatment Not on file Insurance [employer] OOS Member Subscriber Plan / Payer (Ef fective 2018-Present) Name:Magda Astorga Relation to Subscriber:Self Name:Magda Astorga Payer ID:[id number] (NAIC) Type:[employer] Address: [address] CHOICE PRF PPO [place] Member Subscriber Plan / Payer (Ef fective 2018-Present) Name:Magda Astorga Relation to Subscriber:Self Name:Magda Astorga Payer ID:[id number] (NAIC) Type:HEALTHCARE/EXCHANGE Address: [address] [place] [id number] Advance Directives For more information, please contact: [phone] * Full Code (Latest Code Status on File) Date Activated Date Inactivated Comments 08/01/2020 10:02 AM 08/01/2020 6:40 PM Care Teams Technician Trainee Relationship Specialty Start Date End Date Garth Duenas DO [address] [place] [address] PCP - General Family Medicine 06/21/20
--- OUTSIDE RECORDS SUMMARY | 2024-08-01 20:34 | XMS_ITS | Clinical Summary ---
Author Organization [facility] Address [address] [place] [address] Phone Care Team Providers Care Lisw Name Role Phone Unavailable Primary Care Provider [...] 2024 03/09/2022 Medical Devices Implanted Type Area Bird Tender Device Identifier Shelf Expiration Date Model / Serial / Lot Seamguard Endogia 60 Prpl [id number] - [id number] Implanted:Qty : 2 on 03/25/2022 by Monroe Jaramillo MD at [facility] N/A: Abdomen [employer] 11/26/2024 [id number] / / [id number] Seamguard Endogia 60 Blk [id number] - [id number] Implanted:Qty : 2 on 03/25/2022 by Monroe Jaramillo MD at [facility] N/A: Abdomen [employer] 10/06/2024 [id number] / / [id number] Machine Printer Hose Endoclip Iii 5mm W/Cliplogic [id number] - [id number] Implanted:Qty : 1 on 03/25/2022 by Monroe Jaramillo MD at [facility] N/A: Abdomen [employer] COVID[employer]EN 09/07/2023 [id number] / / [id number] Lens Implant Insurance BCBS BLUE ACCESS/TRUE BLUE PPO RX [employer] Commercial RX MC PLANS (INTERNAL) [facility] Internal Plans Advance Directives For more information, please contact: [phone] * Full Code (Latest Code Status on File) Date Activated Date Inactivated Comments 03/25/2022 3:13 PM 03/27/2022 2:32 PM * Full Code Date Activated Date Inactivated Comments 03/25/2022 6:34 AM 03/25/2022 3:13 PM * Full Code Date Activated Date Inactivated Comments 03/22/2022 8:09 AM 03/22/2022 12:49 PM
[2024-08-01] MEDS: HYDROcodone/acetaminophen (*CRX) 5-325 MG TABLET 1 TAB PO (20:44)
--- NOTE | 2024-08-01 20:48 | PC.NURSE ---
RESTING QUIETLY ON STRETCHER. WAITING TO GO TO XRAY
[2024-08-01 21:55] VITALS: BP 148/88; PULSE 72; RESP 18; O2SAT 100
== END 2024-08-01 21:55 | disposition home or self-care (01) ==
PROVIDERS: Emergency Provider Emergency Medicine; PCP Family Medicine
DX: M25.462 Effusion, left knee (principal); M23.92 Unspecified internal derangement of left knee; I10 Essential (primary) hypertension; Z87.891 Personal history of nicotine dependence; W18.30XA Fall on same level, unspecified, initial encounter
CPT/HCPCS: 73564; 99283; A9270

== ENCOUNTER 2024-08-28 07:21 | Outpatient (CLI) | payer BC, SELFPAY ==
--- NOTE | ~2024-08-28 | MR_ITS ---
EXAMINATION: MR knee LT wo con DATE: 08/28/2024 08:09 INDICATION: Left knee pain. TECHNIQUE: Magnetic resonance imaging (MRI) of the left knee was performed without intravenous contra st. Sequences included axial PD-weighted FS FSE, coronal PD-weighted FSE and PD-weighted FS FSE, sagi ttal PD-weighted FSE, and sagittal T2-weighted FS FSE. COMPARISON: Left knee radiographs 08/01/2024 FINDINGS: Medial compartment: Medial meniscus is normal. There is shallow partial-thickness cartilage loss of tibial condyle. There is partial-thickness cartilage loss of femoral condyle including deep cartilage fissuring involving the central articular surface. Osteophytes are noted. Lateral compartment: There is a complex tear of anterior horn and body of lateral meniscus. There is extensive full thickn ess cartilage loss of tibial condyle with mild subchondral edema-like marrow signal intensity. There is full-thickness cartilage loss of femoral condyle involving the central articular surface with mode rate subchondral edema-like marrow signal intensity. Osteophytes are noted. Patellofemoral compartment: There is partial-thickness cartilage loss of patella, deep at the lateral facet. There is edema-like marrow signal intensity in patella, worst at the medial pole. There is full thickness cartilage loss involving the central trochlea. Osteophytes are noted. Ligaments and tendons: Anterior and posterior cruciate ligaments are intact. There are changes of prior sprains involving me dial collateral ligament and fibular collateral ligament characterized by thickening and increased si gnal intensity proximally. There is mild patellar tendinopathy. Fluid: There is a small knee joint effusion. Osseous/other: There is a nondisplaced fracture involving the intercondylar eminence and medial tibial condyle with low signal fracture line and surrounding edema-like marrow signal intensity. IMPRESSION: 1. Nondisplaced fracture involving the intercondylar eminence and medial tibial condyle. 2. 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 3. Tear of lateral meniscus. 4. Small knee joint effusion. Reviewed, dictated and finalized at location A. IMPRESSION: 1. Nondisplaced fracture involving the intercondylar eminence and medial tibial condyle. 2. 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 3. Tear of lateral meniscus. 4. Small knee joint effusion.
--- OUTSIDE RECORDS SUMMARY | 2024-08-28 07:27 | XMS_ITS | Clinical Summary ---
Author Organization [facility] Address [address] [place] [address] Phone Care Team Providers Care Compound Coating Machine Offbearer Name Role Phone Unavailable Primary Care Provider [...] Pre-Diabetes and Diabetes Screening 1975 PNEUMOCOCCAL VACCINE 0-49 YEARS (1 of 2 - PCV) 982 DTAP/TDAP/TD VACCINES (1 - Tdap) 08/07/1994 HEPATITIS B VACCINES (1 of 3 - 19+ 3-dose series) 06/1994 PAP SMEAR 08/07/2005 BREAST CANCER SCREENING 2015 COLORECTAL SCREENING 08/07/2020 Colorectal Cancer Screening 08/07/2020 FIT-DNA Q 3 years 08/07/2020 FIT/FOBT Q 1 year 08/07/2020 Flex Sig/CT Colonography Q 5 years 08/07/2020 INFLUENZA VACCINE (#1) 2024 03/09/2022 Medical Devices Implanted Type Area Vault Cashier Device Identifier Shelf Expiration Date Model / Serial / Lot Seamguard Endogia 60 Prpl [id number] - [id number] Implanted:Qty : 2 on 03/25/2022 by Monroe Jaramillo MD at [facility] N/A: Abdomen [employer] 11/26/2024 [id number] / / [id number] Seamguard Endogia 60 Blk [id number] - [id number] Implanted:Qty : 2 on 03/25/2022 by Monroe Jaramillo MD at [facility] N/A: Abdomen [employer] 10/06/2024 [id number] / / [id number] Military Personnel Specialist Endoclip Iii 5mm W/Cliplogic [id number] - [id number] Implanted:Qty : 1 on 03/25/2022 by Monroe Jaramillo MD at [facility] N/A: Abdomen [employer] COVIDIEN 09/07/2023 [id number] / / [id number] Lens Implant Insurance BCBS BLUE ACCESS/TRUE BLUE PPO RX PR[employer]ER[employer] Commercial RX MC PLANS (INTERNAL) [facility] Internal Plans Advance Directives For more information, please contact: [phone] * Full Code (Latest Code Status on File) Date Activated Date Inactivated Comments 03/25/2022 3:13 PM 03/27/2022 2:32 PM * Full Code Date Activated Date Inactivated Comments 03/25/2022 6:34 AM 03/25/2022 3:13 PM * Full Code Date Activated Date Inactivated Comments 03/22/2022 8:09 AM 03/22/2022 12:49 PM
--- OUTSIDE RECORDS SUMMARY | 2024-08-28 07:27 | XMS_ITS | Referral Summary ---
Author Organization [facility] Address [address] [facility] [place] [address] Care Team Providers Care Newspaper Vendor Name Role Phone YulissaRosiomiriam Levy DO Primary [...] (07/10/2020): Added automatically from request for surgery [id number] Asthma 07/10/2020 HTN (hypertension) 07/10/2020 Social History [...] on file Legal Sex Female 11:57 AM POWER GENERATION TECHNICIAN Gender Identity Female 07/01/2020 10:47 AM POWER GENERATION TECHNICIAN Sexual Orientation Straight 07/01/2020 10 :47 AM POWER GENERATION TECHNICIAN Last Filed Vital Signs Vital Sign Reading Time Taken Comments Blood Pressure 116/78 11/07/2023 9:08 AM CDT Pulse 56 11/07/2023 9:08 AM CDT Temperature 36.2 C (97.1 F) 08/01/2020 10:35 AM POWER GENERATION TECHNICIAN Respiratory Rate 29 08/01/2020 2:20 PM POWER GENERATION TECHNICIAN Oxygen Saturation 97% 08/01/2020 2:20 PM POWER GENERATION TECHNICIAN Inhaled Oxygen Concentration - - Weight 104.8 kg (231 lb) 11/07/2023 9:08 AM CDT Height 165.1 cm (5' 5 ) 04/02/2021 10:22 AM CDT Body Mass Index 38.44 04/02/2021 10:22 AM CDT Plan of Treatment Not on file Insurance [employer] OOS Member Subscriber Plan / Payer (Ef fective 2018-Present) Name:Magda Astorga Relation to Subscriber:Self Name:Magda Astorga Payer ID:[id number] (NAIC) Type:[employer] Address: [address] CHOICE PRF PPO [place] Member Subscriber Plan / Payer (Ef fective 2018-Present) Name:Magda Astorga Relation to Subscriber:Self Name:Magda Astorga Payer ID:[id number] (NAIC) Type:HEALTHCARE/EXCHANGE Address: [address] [place] [phone] Advance Directives For more information, please contact: [phone] * Full Code (Latest Code Status on File) Date Activated Date Inactivated Comments 08/01/2020 10:02 AM 08/01/2020 6:40 PM Care Teams Newspaper Vendor Relationship Specialty Start Date End Date Garth Duenas DO [address] [place] [address] PCP - General Family Medicine 06/21/20
--- OUTSIDE RECORDS SUMMARY | 2024-08-28 07:27 | XMS_ITS | Clinical Summary ---
Author Organization [facility] Address [facility] [place] [address] Care Team Providers Care Database Architect Name Role Phone AntwonGarth lozano DO Primary Care Provider [phone] Allergies Active Allergy Reactions Criticality Noted Date Comments Lisinopril Cough 05/12/2024 Medications albuterol sulfate HFA 108 (90 Base) MCG/ACT inhaler 05/20/2023 Act sugey montelukast (SINGULAIR) 10 MG tablet Take 1 tablet (10 mg total) by mouth. 07/08/2023 Active FLUoxetine (PROZAC) 20 MG capsule Take 1 capsule (20 mg total) by mouth daily. 04/14/2024 Active Active Problems No known active problems Immunizations Name Administration Dates Next Due Afluria [...] on file Legal Sex Female 3:03 PM MAIL TELLER Gender Identity Not on file Sexual Orientation Not on file Last Filed Vital Signs Vital Sign Reading Time Taken Comments Blood Pressure 122/88 05/12/2024 1:48 PM MAIL TELLER Pulse 66 05/12/2024 1:48 PM MAIL TELLER Temperature 37 C (98.6 F) 05/12/2024 1:48 PM MAIL TELLER Respiratory Rate - - Oxygen Saturation 98% 05/12/2024 1:48 PM MAIL TELLER Inhaled Oxygen Concentration - - Weight 113.4 kg (250 lb) 05/12/2024 1:48 PM MAIL TELLER Height 165.1 cm (5' 5 ) 05/12/2024 1:48 PM MAIL TELLER Body Mass Index 41.6 05/12/2024 1:48 PM MAIL TELLER Plan of Treatment Health Maintenance Due Date [...] 03/17/2021, 03/04/2020, Additional history exists PHQ-2 (Physician [place]) 06/09/2024 08/13/2023 Meningococcal B Vaccine Aged Out [...] on patient's age to complete this topic [place] [address] [place] [address] Care Teams Database Architect Relationship Specialty Start Date End Date Garth Duenas DO [address] [place] [address] PCP - General FAMILY PRACTICE 08/13/23
--- OUTSIDE RECORDS SUMMARY | 2024-08-28 07:27 | XMS_ITS | Encounter Summary ---
Author Organization [facility] Address [address] [place] [address] Care Team Providers Care Support Team Member Name Role Phone Unavailable Primary Care Provider Unavailabl e Reason for Visit * Reason Onset Date Comments Medical Management 03/25/2022 Spoke w/ BOOM STICK WORKER Kylah rodarte Encounter Details Date Type Department Care Team (Late st Contact Info) Description 03/25/2022 Telephone [facility] Admitting [address] [place] [address] [place] [address] [place] [address] Medical Management (Spoke w/ BOOM STICK WORKER Hossein) Social History Tobacco Use Types Packs/Day [...]
--- OUTSIDE RECORDS SUMMARY | 2024-08-28 07:27 | XMS_ITS | Clinical Summary ---
Author Organization [facility] Address [address] [facility] [place] [address] Care Team Providers Care Gate Services Supervisor Name Role Phone YulissaRosiomiriam Levy DO Primary [...] (07/10/2020): Added automatically from request for surgery [id number] Asthma 07/10/2020 HTN (hypertension) 07/10/2020 Surgical History [...] on file Legal Sex Female 11:57 AM SPORTS EQUIPMENT SUPERVISOR Gender Identity Female 07/01/2020 10:47 AM SPORTS EQUIPMENT SUPERVISOR Sexual Orientation Straight 07/01/2020 10 :47 AM SPORTS EQUIPMENT SUPERVISOR Obstetrics History Last Filed Vital Signs Vital Sign Reading Time Taken Comments Blood Pressure 116/78 11/07/2023 9:08 AM CDT Pulse 56 11/07/2023 9:08 AM CDT Temperature 36.2 C (97.1 F) 08/01/2020 10:35 AM SPORTS EQUIPMENT SUPERVISOR Respiratory Rate 29 08/01/2020 2:20 PM SPORTS EQUIPMENT SUPERVISOR Oxygen Saturation 97% 08/01/2020 2:20 PM SPORTS EQUIPMENT SUPERVISOR Inhaled Oxygen Concentration - - Weight 104.8 [...] 03/07/2024, , 03/09/2022, Additional history exists [place] Advance Directives For more information, please contact: [phone] * Full Code (Latest Code Status on File) Date Activated Date Inactivated Comments 08/01/2020 10:02 AM 08/01/2020 6:40 PM Care Teams Gate Services Supervisor Relationship Specialty Start Date End Date Garth Duenas DO [address] [place] [address] PCP - General Family Medicine 06/21/20
== END 2024-08-28 07:22 | disposition home or self-care (01) ==
LOC: CHSIMG 07:25
PROVIDERS: PCP Nurse Practitioner Family; Visit Provider Nurse Practitioner Family
DX: M25.462 Effusion, left knee (principal); M23.92 Unspecified internal derangement of left knee
CPT/HCPCS: 73721

== ENCOUNTER 2024-09-14 08:42 | Outpatient (CLI) | payer BC, SELFPAY ==
--- NOTE | ~2024-09-14 | XR_ITS ---
Left Knee Technique: AP, lateral, and sunrise views were obtained. Clinical History: Pain Findings: No fracture or dislocation is seen. Osseous alignment is anatomic. There is mild to moderat e lateral compartment degenerative change. Soft tissues are unremarkable. No joint effusion is seen. Impression: Mild to moderate lateral compartment degenerative change. Reviewed, dictated and finalized at location . Impression: Mild to moderate lateral compartment degenerative change.
--- OUTSIDE RECORDS SUMMARY | 2024-09-14 08:56 | XMS_ITS | Clinical Summary ---
Author Organization [facility] Address [facility] [place] [address] Care Team Providers Care Physician Intensivist Name Role Phone AntwonGarth lozano DO Primary Care Provider Allergies Active Allergy [...] on file Legal Sex Female 3:03 PM LIP CUTTER AND SCORER Gender Identity Not on file Sexual Orientation Not on file Last Filed Vital Signs Vital Sign Reading Time Taken Comments Blood Pressure 122/88 05/12/2024 1:48 PM LIP CUTTER AND SCORER Pulse 66 05/12/2024 1:48 PM LIP CUTTER AND SCORER Temperature 37 C (98.6 F) 05/12/2024 1:48 PM LIP CUTTER AND SCORER Respiratory Rate - - Oxygen Saturation 98% 05/12/2024 1:48 PM LIP CUTTER AND SCORER Inhaled Oxygen Concentration - - Weight 113.4 kg (250 lb) 05/12/2024 1:48 PM LIP CUTTER AND SCORER Height 165.1 cm (5' 5 ) 05/12/2024 1:48 PM LIP CUTTER AND SCORER Body Mass Index 41.6 05/12/2024 1:48 PM LIP CUTTER AND SCORER Plan of Treatment Health Maintenance Due Date [...] 2024 03/27/2023, 03/09/2022, 03/17/2021, Additional history exists PHQ-2 (Physician [place]) 06/09/2024 08/13/2023 Meningococcal B Vaccine Aged Out [...] patient's age to complete this topic [place] [address] [place] [address] Care Teams Physician Intensivist Relationship Specialty Start Date End Date Garth Duenas DO [address] [place] [address] PCP - General FAMILY PRACTICE 08/13/23
--- OUTSIDE RECORDS SUMMARY | 2024-09-14 08:56 | XMS_ITS | Referral Summary ---
Author Organization [facility] Address [address] [facility] [place] [address] Care Team Providers Care Production Maintenance Technician Name Role Phone YulissaRosiomiriam Levy DO Primary [...] (07/10/2020): Added automatically from request for surgery [id number] Asthma 07/10/2020 HTN (hypertension) 07/10/2020 Social History [...] on file Legal Sex Female 11:57 AM NEUROPSYCHOLOGY DIRECTOR Gender Identity Female 07/01/2020 10:47 AM NEUROPSYCHOLOGY DIRECTOR Sexual Orientation Straight 07/01/2020 10 :47 AM NEUROPSYCHOLOGY DIRECTOR Last Filed Vital Signs Vital Sign Reading Time Taken Comments Blood Pressure 116/78 11/07/2023 9:08 AM CDT Pulse 56 11/07/2023 9:08 AM CDT Temperature 36.2 C (97.1 F) 08/01/2020 10:35 AM NEUROPSYCHOLOGY DIRECTOR Respiratory Rate 29 08/01/2020 2:20 PM NEUROPSYCHOLOGY DIRECTOR Oxygen Saturation 97% 08/01/2020 2:20 PM NEUROPSYCHOLOGY DIRECTOR Inhaled Oxygen Concentration - - Weight 104.8 kg (231 lb) 11/07/2023 9:08 AM CDT Height 165.1 cm (5' 5 ) 04/02/2021 10:22 AM CDT Body Mass Index 38.44 04/02/2021 10:22 AM CDT Plan of Treatment Not on file Insurance Social Pulse OOS Member Subscriber Plan / Payer (Ef fective 2018-Present) Name:Magda Astorga Relation to Subscriber:Self Name:Magda Astorga Payer ID:[id number] (NAIC) Type:BC ALLIANCE Address: [address] CHOICE PRF PPO [place] Member Subscriber Plan / Payer (Ef fective 2018-Present) Name:Magda Astorga Relation to Subscriber:Self Name:Magda Astorga Payer ID:[id number] (NAIC) Type:HEALTHCARE/EXCHANGE Address: [address] [place] [id number] Advance Directives For more information, please contact: [phone] * Full Code (Latest Code Status on File) Date Activated Date Inactivated Comments 08/01/2020 10:02 AM 08/01/2020 6:40 PM Care Teams Production Maintenance Technician Relationship Specialty Start Date End Date Garth Duenas DO [address] [place] [address] PCP - General Family Medicine 06/21/20
--- OUTSIDE RECORDS SUMMARY | 2024-09-14 08:56 | XMS_ITS | Clinical Summary ---
Author Organization [facility] Address [address] [place] [address] Phone Care Team Providers Care Layout Mechanic Name Role Phone Unavailable Primary Care Provider [...] of 3 - 19+ 3-dose series) 06/1994 HPV/Cotest (21-29) 08/07/1996 CERVICAL CANCER SCREENING 08/07/2005 HPV/Cotest (30-65) 08/07/2005 PAP SMEAR 08/07/2005 BREAST CANCER SCREENING 2015 COLORECTAL SCREENING 08/07/2020 Colorectal Cancer Screening 08/07/2020 FIT-DNA Q 3 years 08/07/2020 FIT/FOBT Q 1 year 08/07/2020 Flex Sig/CT Colonography Q 5 years 08/07/2020 INFLUENZA VACCINE (#1) 2024 03/09/2022 Medical Devices Implanted Type Area Machine Shop Repair Technician Device Identifier Shelf Expiration Date Model / Serial / Lot Seamguard Endogia 60 Prpl [id number] - [id number] Implanted:Qty : 2 on 03/25/2022 by Monroe Jaramillo MD at [facility] N/A: Abdomen [employer] 11/26/2024 [id number] / / [id number] Seamguard Endogia 60 Blk [id number] - [id number] Implanted:Qty : 2 on 03/25/2022 by Monroe Jaramillo MD at [facility] N/A: Abdomen [employer] 10/06/2024 [id number] / / [id number] Cinder Dump Crane Operator Endoclip Iii 5mm W/Cliplogic [id number] - [id number] Implanted:Qty : 1 on 03/25/2022 by Monroe Jaramillo MD at [facility] N/A: Abdomen [employer] - COVIDIEN 09/07/2023 [id number] / / [id number] Lens Implant Insurance BCBS BLUE ACCESS/TRUE BLUE PPO RX PRIME THERAPEUTICS Commercial RX MC PLANS (INTERNAL) [facility] Internal Plans Advance Directives For more information, please contact: [phone] * Full Code (Latest Code Status on File) Date Activated Date Inactivated Comments 03/25/2022 3:13 PM 03/27/2022 2:32 PM * Full Code Date Activated Date Inactivated Comments 03/25/2022 6:34 AM 03/25/2022 3:13 PM * Full Code Date Activated Date Inactivated Comments 03/22/2022 8:09 AM 03/22/2022 12:49 PM
--- OUTSIDE RECORDS SUMMARY | 2024-09-14 08:56 | XMS_ITS | Clinical Summary ---
Author Organization [facility] Address [address] [facility] [place] [address] Care Team Providers Care Television Reporter Name Role Phone YulissaRosiomiriam Levy DO Primary [...] (07/10/2020): Added automatically from request for surgery [id number] Asthma 07/10/2020 HTN (hypertension) 07/10/2020 Surgical History [...] on file Legal Sex Female 11:57 AM IRON INSTALLER Gender Identity Female 07/01/2020 10:47 AM IRON INSTALLER Sexual Orientation Straight 07/01/2020 10 :47 AM IRON INSTALLER Obstetrics History Last Filed Vital Signs Vital Sign Reading Time Taken Comments Blood Pressure 116/78 11/07/2023 9:08 AM CDT Pulse 56 11/07/2023 9:08 AM CDT Temperature 36.2 C (97.1 F) 08/01/2020 10:35 AM IRON INSTALLER Respiratory Rate 29 08/01/2020 2:20 PM IRON INSTALLER Oxygen Saturation 97% 08/01/2020 2:20 PM IRON INSTALLER Inhaled Oxygen Concentration - - Weight 104.8 [...] 03/07/2024, , 03/09/2022, Additional history exists Insurance [employer] [place] [employer] [place] Advance Directives For more information, please contact: [phone] * Full Code (Latest Code Status on File) Date Activated Date Inactivated Comments 08/01/2020 10:02 AM 08/01/2020 6:40 PM Care Teams Television Reporter Relationship Specialty Start Date End Date Garth Duenas DO [address] [place] [address] PCP - General Family Medicine 06/21/20
--- OUTSIDE RECORDS SUMMARY | 2024-09-14 08:56 | XMS_ITS | Encounter Summary ---
Author Organization [facility] Address [address] [place] [address] Care Team Providers Care Grinding Room Inspector Name Role Phone Unavailable Primary Care Provider Unavailabl e Reason for Visit * Reason Onset Date Comments Medical Management 03/25/2022 Spoke w/ LEADERSHIP INTERN Kylah rodarte Encounter Details Date Type Department Care Team (Late st Contact Info) Description 03/25/2022 Telephone [facility] Admitting [address] [place] [address] [place] [address] [place] [address] [place] [address] Medical Management (Spoke w/ LEADERSHIP INTERN Hossein) Social History Tobacco Use Types Packs/Day [...]
== END 2024-09-14 08:43 | disposition home or self-care (01) ==
LOC: CHSIMG 08:43
PROVIDERS: PCP Family Medicine; Visit Provider Nurse Practitioner Family
DX: M25.562 Pain in left knee (principal)
CPT/HCPCS: 73564

== ENCOUNTER 2024-10-05 14:40 | Outpatient (CLI) | payer BC, SELFPAY ==
[2024-10-05 15:03] LABS: Basophils Absolute Auto 0.04 K/mm3 (0.00-0.10); Basophils Percent Auto 0.8 % (0.0-1.0); Eosinophils Absolute Auto 0.06 K/mm3 (0.02-0.50); Eosinophils Percent Auto 1.1 % (1.0-6.0); Hematocrit 46.2 % (35.0-49.0); Hemoglobin 14.9 g/dL (12.0-15.0); Immature Granulocyte Absolute 0.01 K/mm3 (0.00-0.00); Immature Granulocyte Percent A 0.2 % (0.0-0.0); Lymphocytes Percent Auto 26.7 % (18.0-42.0); Mean Corpuscular HGB Conc 32.3 g/dL (32-36); Mean Corpuscular Hemoglobin 30.4 pg (27.0-31.0); Mean Corpuscular Volume 94.3 fL (78.0-102.0); Monocytes Absolute Auto 0.45 K/mm3 (0.10-0.90); Monocytes Percent Auto 8.6 % (2.0-11.0); Neutrophils Absolute Auto 3.29 K/mm3 (1.70-7.20); Neutrophils Percent Auto 62.6 % (50.0-70.0); Platelet Count Result 270 K/mm3 (150-420); Red Cell Distribution Width 12.5 % (11.6-14.4); White Blood Count 5.3 K/mm3 (4.8-10.8)
[2024-10-05 15:38] LABS: Alanine Aminotransferase 25 U/L (14-59); Albumin Level 3.6 g/dL (3.4-5.0); Alkaline Phosphatase 110 U/L (46-116); Anion Gap 4 mmol/L (4-12); Aspartate Amino Transferase 18 U/L (15-37); Bilirubin,Total 0.6 mg/dL (0.00-1.00); Blood Urea Nitrogen 10 mg/dL (7-18); Calcium 8.9 mg/dL (8.5-10.1); Carbon Dioxide 30 mmol/L (21-32); Chloride 104 mmol/L (98-108); Cholesterol 239 mg/dL (0-200); Estimated Glomerular Filt Rate > 60; Glucose 79 mg/dL (70-99); HDL Direct 83 mg/dL (40-60); LDL Cholesterol Calculated 143 mg/dL (<130); Osmolality Calculated 284 mOsm/kg (285-295); Sodium 138 mmol/L (136-145); Total Protein 6.5 g/dL (6.4-8.2); Triglycerides 65 mg/dL (0-150)
[2024-10-05 16:24] LABS: Thyroid Stimulating Hormone Reflex 1.92 u/IU/mL (0.36-3.74)
--- OUTSIDE RECORDS SUMMARY | 2024-10-05 17:03 | XMS_ITS | Clinical Summary ---
Author Organization [facility] Address [address] [place] [address] Phone Care Team Providers Care Customer Account Technician Name Role Phone Unavailable Primary Care Provider [...] Done Comments Pre-Diabetes and Diabetes Screening 1975 DTAP/TDAP/TD VACCINES (1 - Tdap) 08/07/1994 HEPATITIS [...] 2024 03/09/2022 Medical Devices Implanted Type Area Image Archivist Device Identifier Shelf Expiration Date Model / Serial / Lot Seamguard Endogia 60 Prpl [id number] - [id number] Implanted:Qty : 2 on 03/25/2022 by Monroe Jaramillo MD at [facility] N/A: Abdomen [employer] 11/26/2024 [id number] / / [id number] Seamguard Endogia 60 Blk [id number] - [id number] Implanted:Qty : 2 on 03/25/2022 by Monroe Jaramillo MD at [facility] N/A: Abdomen [employer] 10/06/2024 [id number] / / [id number] Plug Making Operator Endoclip Iii 5mm W/Cliplogic [id number] - [id number] Implanted:Qty : 1 on 03/25/2022 by Monroe Jaramillo MD at [facility] N/A: Abdomen [employer] - COVIDIEN 09/07/2023 [id number] / / [id number] Lens Implant Insurance BCBS BLUE ACCESS/TRUE BLUE PPO RX PRIME THERAPEUTICS Commercial RX MC PLANS (INTERNAL) [facility] Internal Plans Advance Directives For more information, please contact: [phone] * Full Code (Latest Code Status on File) Date Activated Date Inactivated Comments 03/25/2022 3:13 PM 03/27/2022 2:32 PM * Full Code Date Activated Date Inactivated Comments 03/25/2022 6:34 AM 03/25/2022 3:13 PM * Full Code Date Activated Date Inactivated Comments 03/22/2022 8:09 AM 03/22/2022 12:49 PM
--- OUTSIDE RECORDS SUMMARY | 2024-10-05 17:03 | XMS_ITS | Clinical Summary ---
Author Organization [facility] Address [facility] [address] [place] [address] Care Team Providers Care Racing Secretary Name Role Phone AntwonGarth lozano DO Primary Care Provider [phone] Allergies Active Allergy Reactions Criticality Noted Date Comments Lisinopril Cough 05/12/2024 Medications albuterol sulfate HFA 108 (90 Base) MCG/ACT inhaler 05/20/2023 Act sugey montelukast (SINGULAIR) 10 MG tablet Take 1 tablet (10 mg total) by mouth. 07/08/2023 Active FLUoxetine (PROZAC) 20 MG capsule Take 1 capsule (20 mg total) by mouth daily. 04/14/2024 Active Active Problems No known active problems Immunizations Immunization Administration Dates Next Due Afluria 6-35 months [...] on file Legal Sex Female 3:03 PM FRANCHISE SALES MANAGER Gender Identity Not on file Sexual Orientation Not on file Last Filed Vital Signs Vital Sign Reading Time Taken Comments Blood Pressure 122/88 05/12/2024 1:48 PM FRANCHISE SALES MANAGER Pulse 66 05/12/2024 1:48 PM FRANCHISE SALES MANAGER Temperature 37 C (98.6 F) 05/12/2024 1:48 PM FRANCHISE SALES MANAGER Respiratory Rate - - Oxygen Saturation 98% 05/12/2024 1:48 PM FRANCHISE SALES MANAGER Inhaled Oxygen Concentration - - Weight 113.4 kg (250 lb) 05/12/2024 1:48 PM FRANCHISE SALES MANAGER Height 165.1 cm (5' 5 ) 05/12/2024 1:48 PM FRANCHISE SALES MANAGER Body Mass Index 41.6 05/12/2024 1:48 PM FRANCHISE SALES MANAGER Plan of Treatment Health Maintenance Due Date [...] 03/09/2022, 03/17/2021, Additional history exists PHQ-2 (Physician [place]) 06/09/2024 08/13/2023 Meningococcal B Vaccine Aged Out No l onger eligible based on patient's age to complete this topic Meningococcal Vaccine Aged Out No leonel annette eligible based on patient's age to complete this topic Pneumococcal Vaccine: Pediatrics (0 to 5 Years) and At-Risk Patients (6 to 49 Years) Aged Out No longer eligible based on patient's age to complete this topic RSV Immunizations Under 20 Months Aged Out No longer eligible based on patient's age to complete this topic [place] [address] [place] [address] Care Teams Racing Secretary Relationship Specialty Start Date End Date Garth Duenas DO [address] [place] [address] PCP - General FAMILY PRACTICE 08/13/23
--- OUTSIDE RECORDS SUMMARY | 2024-10-05 17:03 | XMS_ITS | Encounter Summary ---
Author Organization [facility] Address [address] [place] [address] Care Team Providers Care Special Education Supervisor Name Role Phone Unavailable Primary Care Provider Unavailabl e Reason for Visit * Reason Onset Date Comments Medical Management 03/25/2022 Spoke w/ FLIGHT MECHANIC Kylah rodarte Encounter Details Date Type Department Care Team (Late st Contact Info) Description 03/25/2022 Telephone [facility] Admitting [address] [place] [address] [place] [address] [place] [address] [place] [address] Medical Management (Spoke w/ FLIGHT MECHANIC Hossein) Social History Tobacco Use Types Packs/Day [...]
== END 2024-10-05 14:41 | disposition home or self-care (01) ==
PROVIDERS: PCP Nurse Practitioner Family; Visit Provider Nurse Practitioner Family
DX: Z00.00 Encounter for general adult medical examination without abnormal findings (principal)
CPT/HCPCS: 36415; 80053; 80061; 83036; 84443; 85025